=== PATIENT | male | born 1990 | race Two or more races ===

== ENCOUNTER 2024-09-29 19:01 | Emergency (ER) | payer OTHER, MEDICAID ==
[~2024-09-29] VITALS: Ht 180.3 cm; Wt 87.8 kg
[2024-09-29 19:41] VITALS: BP 125/77; RESP 14
[2024-09-29 21:17] LABS: COVID19 ANTIGEN SOFIA FIA NEGATIVE (NEGATIVE); Rapid Influenza A Negative (Negative); Rapid Influenza B Negative (Negative)
[2024-09-29 21:19] LABS: Rapid Strep A Screen-Throat Negative
[2024-09-29 22:49] VITALS: PULSE 96; O2SAT 95
[2024-09-29] MEDS ORDERED: ACET500T58 PO (22:50)
[2024-09-29] MEDS ORDERED: PRED20TA2 PO (22:50)
[2024-09-29] MEDS ORDERED: ZOFR4T PO (22:50)
--- NOTE | 2024-09-29 22:50 | ED.PDOC ---
History of Present Illness HPI Comments 34-YEAR-OLD MALE PRESENTS TO ER WITH COMPLAINTS OF FLU-LIKE SYMPTOMS X2 DAYS. PATIENT REPORTS HE HAS BEEN EXPERIENCING DRY COUGH, CONGESTION, SORE THROAT, FATIGUE, INTERMITTENT FEVER, INTERMITTENT FRONTAL HEAD AND NAUSEA/VOMITING X2 DAYS. STATES HE HAS BEEN AROUND HIS CHILDREN WHO HAVE ALSO BEEN EXPERIENCING SIMILAR SYMPTOMS. HE RATES HIS CURRENT PAIN A 9/10. REPORTS THAT HE LAST TOOK [id number] TYLENOL AT 6:00 P.M. PRIOR TO ARRIVAL TO ER. PATIENT PRESENTS TO ER AFEBRILE, AMBULATORY ON ARRIVAL, WITH STEADY GAIT, ALERT AND ORIENTED X4, IN NO DISTRESS AND STATES HE HAS ALSO BEEN EXPERIENCING INTERMITTENT EPISODES OF SHORTNESS OF BREATH WITH HIS COUGH. DENIES CHEST PAIN, HEMOPTYSIS, EARACHE, ABDOMINAL PAIN, CHANGES IN URINATION/BM OR ANY FURTHER SYMPTOMS/COMPLAINTS Chief Complaint: Flu like Time Seen by MD: 20:18 Primary Care Provider: UNKNOWN Reviewed Notes: Nurses Notes, Medications, Allergies Information Source: Patient Mode of Arrival: Ambulatory Past Medical History PAST MEDICAL HISTORY: Denies Surgical History: Denies all surgeries Family History Family History: Unknown Social History Smoker: Non-Smoker Alcohol: Denies ETOH Use Drugs: Denies Drug Use Lives In: Home Constitutional: See HPI EENTM: See HPI Respiratory: See HPI Cardiovascular: No Symptoms Reported Gastrointestinal: See HPI Genitourinary: No Symptoms Reported Neurological: See HPI Musculoskeletal: No Symptoms Reported Integumentary: No Symptoms Reported Allergic/Immunocompromised: others (DENIES) Hematologic/Lymphatic: No Symptoms Reported Endocrine: No Symptoms Reported Psychiatric: No symptoms Reported Physical Exam General Appearance: No Apparent Distress HEENT: Normal ENT Inspection, PERRL/EOMI, Pharynx Normal, TMs Normal Neck: Full Range of Motion, Non-Tender, Normal Respiratory: Chest Non-Tender, Lungs Clear, No Accessory Muscle Use, No Respiratory Distress, Normal Breath Sounds Cardiovascular: No Murmur, No Gallop, Regular Rate/Rhythm Breast Exam: Deferred Gastrointestinal: Non Tender, No Pulsatile Mass, Soft Genitalia: Deferred Pelvic: Deferred Rectal: Deferred Extremities: Normal capillary refill, Normal range of motion Neurologic: Alert, certified ophthalmic medical technician II-XII nml as Tested, No Motor Deficits, Normal Affect, Normal Mood, No Sensory Deficits Cerebellar Function: Normal Reflexes: Normal Skin: Dry, Normal Color, Warm Peripheral Pulses: 2+ Radial (R), 2+ Radial (L), 2+ Brachial (R), 2+ Brachial (L) Lymphatic: No Adenopathy Was a procedure done? Was a procedure done?: No Sedation Sedation?: No Fever Differential Dx Differential Diagnosis: Dehydration, Pneumonia, Sepsis, Pharyngitis, Other (COVID 19, INFLUENZA) X-Ray, Labs, Meds, VS Vital Signs Date Time Temp Pulse Resp B/P (MAP) Pulse Ox O2 Delivery O2 Flow Rate FiO2 09/29/24 22:49 96 95 09/29/24 19:41 98.6 112 14 125/77 (93) 96 Lab Test 09/29/24 19:45 Range/Units Influenza Type A Antigen Negative Negative Influenza Type B Antigen Negative Negative SARS-CoV-2 Antigen (Rapid) Negative NEGATIVE Group A Streptococcus Rapid Negative ALL SWAB RESULTS REVIEWED-NEGATIVE HEP-LOCK IV ORDERED NS 1 L IV ORDERED TORADOL 60 MG IM ORDERED PATIENT HAD IMPROVEMENT IN SYMPTOMS, TOLERATING P.O. INTAKE WELL AND IN NO DIS TRESS PRIOR TO DISCHARGE DIET EDUCATION DISCUSSED ADVISED TO FOLLOW UP WITH PCP IN 1-2 DAYS PATIENT VERBALIZED UNDERSTANDING AND AGREEABLE WITH CURRENT PLAN OF CARE ADVISED TO RETURN TO ER IMMEDIATELY IF SYMPTOMS WORSEN Time of 1ST Reevaluation: 22:00 Reevaluation 1ST: N/A Time of 2ND Reevaluation: 23:00 Reevaluation 2ND: Improved Patient Education/Counseling: Diagnosis, Treatment, Prognosis, Need For Follow Up Family Education/Counseling: No Family Present Departure 1 Departure Time of Disposition: 23:02 Impression: Primary Impression: Viral URI Additional Impression: Gastroenteritis Disposition: 01 HOME / SELF CARE / HOMELESS Condition: Stable e-Prescriptions Ondansetron Odt 4MG Tab (ZOFRAN PO) 4 Mg Tb 4 MG PO Q8HPRN, #14 TAB 0 Refills ODT TAB-DISSOLVE IN MOUTH, THEN SWALLOW Prov: LUCAS SORTO 09/29/24 Prednisone (Prednisone) 20 Mg Tab 20 MG PO BID for 5 Days, #10 TAB 0 Refills Prov: LUCAS SORTO 09/29/24 Acetaminophen (Acetaminophen) 500 Mg Tab 500 MG PO Q4HPRN, #30 TAB 0 Refills Prov: LUCAS SORTO 09/29/24 Critical Care Note Critical Care Time?: No Stability Stability form required: No Heart Score Heart Score: Heart Score Response (Comments) Value History N/A 0 EKG N/A 0 Age N/A 0 Risk Factors N/A 0 Troponin N/A 0 Total 0 LUCAS SORTO Sep 29, 2024 22:50
[2024-09-29] MEDS: KETOROLAC TROMETH 60MG/2ML VIAL IM ONE (23:12)
[2024-09-29] MEDS: SODIUM CHLORIDE 0.9% 1,000 ML IV ONE (23:20)
== END 2024-09-30 01:20 | disposition home or self-care (01) ==
LOC: ER 19:01
DX: J06.9 Acute upper respiratory infection, unspecified (principal); B97.89 Other viral agents as the cause of diseases classified elsewhere; K52.9 Noninfective gastroenteritis and colitis, unspecified; Z20.822 Contact with and (suspected) exposure to COVID-19
CPT/HCPCS: 36415; 87070; 87426; 87804; 87880; 96360; 96372; 99283; J1885; J7030